=== PATIENT | female | born 1950 | race Caucasian/White ===

== ENCOUNTER → 2022-08-09 | Outpatient (CLI) | payer MEDICARE, OTHER, SELFPAY | END | disposition home or self-care (01) | LOC: LABSPEC 12:04 | PROVIDERS: PCP Internal Medicine; Visit Provider Obstetrics & Gynecology | DX: R30.0 Dysuria (principal) | CPT/HCPCS: 87086 ==

== ENCOUNTER → 2022-08-28 | Outpatient (CLI) | payer MEDICARE, OTHER, SELFPAY ==
--- NOTE | 2022-08-28 13:32 | US_ITS ---
STUDY: ULTRASOUND OF THE FEMALE PELVIS - COMPLETE REASON FOR EXAM: Female, 71 years old. pelvic pain/uterine prolapse TECHNIQUE: Transabdominal COMPARISON: None. FINDINGS: The uterus is anteverted and is in a midline position. The uterus measures 8.5x4.1 cm. Normal uterine cervix. The endometrium measures 2 mm in thickness, and is hyperechoic. There is no demonstrated endometrial mass. There is no demonstrated myometrial mass. I.U.D. - The patient does not have an I.U.D. The right ovary is visualized. The right ovary measures 1.4x1.4 cm. There is no right ovarian cyst or ovarian mass. There is no visualized right adnexal mass or complex lesion. There is normal arterial and normal venous vascularity. There is nonvisualization of the left ovary due to overlying bowel gas. There is no fluid in the cul-de-sac. Urinary bladder volume is (in cc) 881. US/Pelvic (Non ) IMPRESSION: There are no acute findings. Electronically Signed: Tushar Benitez MD at 17:35 EDT ,
== END | disposition home or self-care (01) ==
LOC: US 13:31
PROVIDERS: PCP Internal Medicine; Referring Provider Obstetrics & Gynecology; Visit Provider Obstetrics & Gynecology
DX: N81.2 Incomplete uterovaginal prolapse (principal)
CPT/HCPCS: 76856

== ENCOUNTER 2022-09-13 14:57 | Observation (INO) | payer MEDICARE, OTHER, SELFPAY ==
--- NOTE | 2022-09-03 12:12 | EKG12_ITS ---
Test Reason : PRE-OP Blood Pressure : / mmHG Vent. Rate : 053 BPM Atrial Rate : 053 BPM P-R Int : 160 ms QRS Dur : 084 ms QT Int : 410 ms P-R-T Axes : 020 007 013 degrees QTc Int : 384 ms Sinus bradycardia Otherwise normal ECG Confirmed by GREGORIO GUERRERO ([id number]), editor producer YURIY MCKINNON ([id number]) on 09/04/2022 7:49:56 AM Referred By: GEO Confirmed By:GREGORIO GUERRERO
[2022-09-03 12:30] LABS: Hemoglobin 14.9 g/dL (12.0-15.0); Mean Corp Hgb Conc 33.9 g/dL (32-36); Mean Corpuscular Volume 88.5 fL (81-99); Mean Platelet Vol. 9.6 fl (6.2-12.0); Platelet Count 233 K/mm3 (150-450); RBC Distribution Width CV 12.8 % (11.6-14.6); RBC Distribution Width SD 41.9 fl (35.1-43.9); Red Blood Count 4.97 M/mm3 (4.2-5.4); White Blood Count 5.5 K/mm3 (4.4-11.0)
[2022-09-03 13:12] LABS: ALB/GLOB Ratio 1.2 RATIO (0.9-2.4); AST(SGOT) 22 U/L (15-37); Alanine Aminotransfer ALT/SGPT 29 U/L (13-56); Alkaline Phosphatase 74 U/L (45-117); Anion Gap 2 (5-15); BUN 13 mg/dL (7-18); BUN/Creat Ratio 13.9 RATIO (10-20); Chloride 103 mmol/L (98-107); Creatinine, Serum 0.94 mg/dL (0.55-1.02); EST Glomerular Filtration Rate 63 mL/min (>60); Est Glom Filt Rate - Afr Amer 76 mL/min (>60); Globulin 3.4 g/dL (2.2-4.2); Glucose 105 mg/dL (74-106); Potassium 3.8 mmol/L (3.5-5.1); Protein, Total 7.4 g/dL (6.4-8.2); Sodium Level 136 mmol/L (136-145)
[2022-09-03 13:13] LABS: Magnesium 2.1 mg/dL (1.6-2.6)
--- NOTE | 2022-09-09 17:29 | HP.PCM_ITS ---
History and Physical MR#: [id number] Acct: [id number] Name:? ASHANTI JENNINGS Rep #: [id number] : 1950 ? ? Provider: Dr. Sheri Martin MD Age/Sex:? 71/F ? ? Location: [facility] [place] Status: Signed Intake Vital Signs ? 08/09/2309:20 Height 5 ft 2 in Weight: 155 lb 4 oz BMI 28.3 BP 182/95 H Intake Visit Reasons:?flaquita referral surgical consult Paving Bed Maker Required: No Is patient in pain?: No Allergies Sulfa (Sulfonamide Antibiotics) Allergy (Verified 08/09/22 10:23) Hives Medications acyclovir 400 mg tablet 400 mg PO DAILY 08/09/22 [History Confirmed 08/09/22] amlodipine 5 mg tablet 5 mg PO DAILY 08/09/22 [History Confirmed 08/09/22] azelaic acid 20 % topical cream 1 applic topical BID 08/09/22 [History Confirmed 08/09/22] calcium carbonate 600 mg calcium (1,500 mg) tablet 600 mg PO BID 08/09/22 [History Confirmed 08/09/22] carvedilol 12.5 mg tablet 12.5 mg PO BID 08/09/22 [History Confirmed 08/09/22] cholecalciferol (vitamin D3) 10 mcg (400 unit) capsule 10 mcg PO DAILY 08/09/22 [History Confirmed 08/09/22] clonidine HCl 0.1 mg tablet 0.1 mg PO BID 08/09/22 [History Confirmed 08/09/22] famotidine 20 mg tablet 20 mg PO DAILY PRN 08/09/22 [History Confirmed 08/09/22] fexofenadine 180 mg tablet 180 mg PO DAILY 08/09/22 [History Confirmed 08/09/22] latanoprost 0.005 % eye drops 1 drp ophthalmic (eye) DAILY 08/09/22 [History Confirmed 08/09/22] losartan 100 mg tablet 100 mg PO DAILY 08/09/22 [History Confirmed 08/09/22] nitrofurantoin macrocrystal 100 mg capsule 100 mg PO BID 08/09/22 [History Confirmed 08/09/22] Is last menstrual period known: No Post menopausal: Yes Patient : No : No PFSH Medical History?(Updated 08/09/22 @ 11:[address] Sheri Martin MD) GERD (gastroesophageal reflux disease) Glaucoma Hypertension Surgical History?(Updated 08/09/22 @ 10:25 by Elissa Carpio) Hx of dilation and curettage Family History?(Updated 08/09/22 @ 10:26 by Elissa Carpio) Father Heart disease Social History?(Updated 08/09/22 @ 10:28 by Elissa Carpio) number of children:? 3 current occupational status:? retired pets and animals:? Yes history of recent travel:? No sexually active:? No Smoking Status:? Never smoker alcohol intake:? never caffeine:? Yes what type of physical activity do you participate in:? walking seatbelt use:? always do you feel safe at home:? Yes additional social history:? spouse Joseph (retired) MANA sams referral surgical consult Details: * ASHANTI JENNINGS is a 71 year old who presents for vaginal bulge and pressure, increasing over the years.? she denies any burning or odor. she has acute symptoms of urinary frequency and some discomfort help and the overlay.? she was seen by dr sams and referred here.? she has nocturia overnight and frequency, declines pessary. Female Reproductive History Questions: metorrhagia: No, dyspareunia: No and PCB: No Menopausal Symptoms: No night sweats History ? ? ? 8 ? Elective abortions ? Hx Para ? ? ? 3 ? Spontaneous abortions ? Hx # Term Pregnancies ? Ectopic pregnancies ? Hx # Pregnancies ? Multiple births ? # of living children ? Past Pregnancies Del. Date Name GA/Weeks Outcome Route Bth Weight Gen Labor Lgth Anesthesia Del Locatn Provider FOB Unknown 3 Ninoska Shah ? ROS Const Constitutional: Reports system reviewed and no additional complaints, except as documented; Denies fatigue, headache(s) or night sweats ENT ENT: Reports system reviewed and no additional complaints, except as documented Cardio Card: Denies chest pain Resp Resp: Denies cough or dyspnea GI GI: Denies abdominal pain, bloating, change in stool character, constipation, fecal incontinence, nausea or vomiting : Reports prolapse symptoms, urinary incontinence and vaginal dryness; Denies nipple discharge, pelvic pain, sexual dysfunction, urinary frequency, urinary urgency, vaginal discharge, vaginal odor or vaginal pruritus Musc Musc: Denies arthralgias, back pain or muscle weakness Skin Skin/Breast: Denies alopecia, change in hair, dry skin, breast mass, breast pain, breast skin changes or nipple discharge Neuro Neuro: Reports system reviewed and no additional complaints, except as documented Psych Psych: Denies anxiety or depression Endo Endo: Denies cold intolerance, excessive sweating, heat intolerance or polydipsia Dayne/Lymph Hematologic/Lymphatic: Denies easy bleeding, Denies easy bruising and Denies lymphadenopathy Exam Const General: cooperative, healthy appearing, comfortable, no acute distress and well developed Orientation: alert [facility] Head: normal to inspection, normocephalic and atraumatic Ears: hearing grossly normal bilaterally and external ears normal Nose: external nose normal and nares normal Face and sinus: normal facial exam Neck Neck: normal visual inspection, full ROM, no lymphadenopathy and trachea midline Thyroid: thyroid normal Chest Chest palpation & inspection: normal inspection of the chest Breast inspection: normal inspection of the breasts, normal inspection of the axillae, abnormal inspection of the axilla and abnormal inspection of the breast Resp Effort & Inspection: normal respiratory effort Auscultation: clear to auscultation bilaterally Cardio Rate: regular rate Rhythm: regular rhythm Heart Sounds: S1 normal and S2 normal GI Inspection: normal to inspection and non-distended Palpation: soft, no hepatosplenomegaly, no hepatomegaly, not rigid and nontender General: bladder normal to palpation External Female Exam: abnormal external appearance (atrophic introitus), normal appearance of the urethra and no lesions Urethra: normal appearance of the urethra Speculum Exam - Vagina: abnormal appearance of the vagina, normal vaginal discharge, vagina atrophic and no lesions Speculum Exam - Cervix: normal appearance of the cervix Bimanual Exam- Vagina & Uterus: normal bimanual exam, uterine size normal, bladder normal to palpation, uterine shape normal, uterine mobility normal and non-tender Bimanual Exam- Adnexa, other: normal adnexae, no masses, rectocele (III), cystocele (III) and vaginal apex descent (III enlarged hiatus) Pelvic Support: cystocele (III), rectocele (III) and vaginal apex descent (III enlarged hiatus) Musc Other: gross motor intact no deficits, full bilateral strength Skin General: no rashes or lesions noted and atrophy Neuro General: patient alert, patient awake, moves all extremities and no focal motor deficits Motor: muscle tone normal throughout Extrem General: normal to inspection and no pedal edema Psych Appearance: grossly normal Mental Status: mental status grossly normal Affect: normal affect Speech and Movement: speech and movement normal Results POC Urinalysis Dip (Clinic) Office Urine Color Straw ? ? Last Edit by Elissa Carpio on 08/09/22 11:23 Office Urine Clarity Clear ? ? Last Edit by Elissa Carpio on 08/09/22 11:23 Office Urine Glucose Negative ? ? Last Edit by Elissa Carpio on 08/09/22 11:23 Office Urine Ketones Negative ? ? Last Edit by Elissa Carpio on 08/09/22 11:23 Off Ur Spec [place] 1.010 ? ? Last Edit by Elissa Carpio on 08/09/22 11:23 Office Urine pH 6 ? ? Last Edit by Elissa Carpio on 08/09/22 11:23 Office Urine Bilirubin Negative ? ? Last Edit by Elissa Carpio on 08/09/22 11:23 Office Urine Urobilinogen ? ? ? Last Edit by Elissa Carpio on 08/09/22 11:23 Office Urine Blood Moderate ? ? Last Edit by Elissa Carpio on 08/09/22 11:23 Office Urine Blood Hemolyzed Moderate ? ? Last Edit by Elissa Carpio on 08/09/22 11:23 Office Urine Protein Negative ? ? Last Edit by Elissa Carpio on 08/09/22 11:23 Office Urine Nitrate Negative ? ? Last Edit by Elissa Carpio on 08/09/22 11:23 Off Ur Leukocytes Negatve ? ? Last Edit by Elissa Carpio on 08/09/22 11:23 Coding Level of Care Code Off vis,new,level 5 Diagnoses Hx of rhinoplasty? Z98.890 Hypertension? I10 Incomplete uterovaginal prolapse? N81.2 Assessment and Plan Assessment and Plan (1) Hx of rhinoplasty: (2) Hypertension: ?Status:?Chronic (3) Incomplete uterovaginal prolapse: ?Status:?Acute ?Comment: combo case with flaquita ? ? ? Orders: Orders POC Urinalysis Dip (Clinic) Today R30.0 - Dysuria ? Culture, Urine Today R30.0 - Dysuria ? Plan After discussing the patient's diagnosis and treatment plan options, patient wishes to proceed with surgical management.? I have discussed with the patient the risks, benefits, and alternatives of the procedure which include but are not limited to risks of anesthesia, bleeding, infection, possible damage to bowel, bladder, or surrounding vasculature which could lead to additional surgery to evaluate any complications.? Patient agrees to procedure and wishes to proceed.? ACOG/uptodate references given for additional information regarding procedure.?
[2022-09-13] VITALS (17 sets, daily range): BP systolic 100–146; BP diastolic 59–96; PULSE 45–81; RESP 16–18; TEMP 36.2–36.9; O2SAT 94–100; BMI 28.0
--- NOTE | 2022-09-13 | HYST_PTH ---
PATIENT: ASHANTI JENNINGS LOC: [facility]3 U#:[id number] AGE/SX: 71/F ROOM: [facility] [place] RE09/13/[address]: Dr. Anamika Quinones MD : 1950 BED: 1 DIS: 09/14/2022 SPEC #: [id number] RECD: 09/13/22 12:34 STATUS: AARON BROWER #: [id number] AMANDA: 09/13/22 00:[address]: Anamika Quinones DEPT: SURGICAL PATHOLOGY RECD BY: Tj Ludwig ENTERED: 09/13/22 12:34 SP TYPE: HYSTERECT OTHR DR: MD Dr. Sheri Hughes MD Tissues: Uterus, NOS Procedures: Surgery Specimen Level V HEADER OPERATION: ERAS, total vaginal hysterectomy PRE-OP DIAGNOSIS: History of rhinoplasty, hypertension, incomplete uterovaginal prolapse TISSUE SUBMITTED: Cervix, uterus MICROSCOPIC DIAGNOSIS Cervix, uterus, total vaginal hysterectomy: Cervix ? chronic cystic cervicitis and squamous metaplasia. Endometrium ? proliferative endometrium with focal cystic changes. Myometrium ? focal superficial adenomyosis. ESTELA:jose juan 09/14/2022 MICROSCOPIC DESCRIPTION Slides are reviewed. GROSS DESCRIPTION Received in fixative is one container labeled with the patient's name and designated cervix and uterus. The specimen consists of a hysterectomy specimen consisting of uterus with cervix measuring 7.8 x 4.0 x 3.0 and weighing 42 gm. The serosal surface is bruner, glistening. The ectocervical mucosa is unremarkable. The external os is slit-like in contour. The endocervical canal measures 3.0 cm in length and the endocervical mucosa is unremarkable. Sections of the cervix reveal a few cysts filled with mucoid material. The triangular endometrial cavity measures 3.5 cm in length and 2.0 cm in width. The endometrium is bruner, glistening without any mass lesion and measures 0.1 cm in thickness. Sections of the uterine wall do not reveal any mass lesion and measures 1.2 cm in thickness. Presiding Judge sections are submitted in six cassettes as follows: 1 - anterior cervix, 2 - posterior cervix, 3 & 4 - anterior uterine wall, 5 & 6 - posterior uterine wall. / ESTELA:jose juan 09/13/2022 TC:5 CPT: 32451
[2022-09-13] MEDS: Acetaminophen 500 MG Tablet 1000 MG PO ×2 (06:41→17:48)
[2022-09-13] MEDS: Gabapentin 600 MG Tablet PO (06:41)
[2022-09-13] MEDS: Enoxaparin 40 MG/0.4 ML Syringe SC (06:43)
[2022-09-13] MEDS: Scopolamine 1mg/72hr Patch 1 PATCH TD (06:47)
[2022-09-13] MEDS: Lactated Ringers 1,000 ML 40 ML IV ×3 (06:48→18:26)
[2022-09-13] MEDS: dexAMETHasone 4 MG/ML Vial 8 MG IV (06:50)
[2022-09-13] MEDS: Magnesium 1 GM over 15 mins IV (06:56)
[2022-09-13] MEDS: Celecoxib 200 MG Capsule 400 MG PO (07:05)
[2022-09-13 07:10] LABS: Bedside Glucose 145 mg/dL (74-106)
[2022-09-13] MEDS: Cefazolin 2 GM in 0.9% Normal Saline 100 ML IV (07:28)
--- NOTE | 2022-09-13 07:29 | PCM.OPRPT ---
Problems Associated Problem List Diagnoses (1) Incomplete uterovaginal prolapse: (2) Hypertension: Report of Operation Date of Procedure: 09/13/22 Pre-Operative Diagnosis: see PL Post-Operative Diagnosis: same Surgery/Procedure Performed:: TVH Description of Surgical Findings:: nl uterus tubes ovaries Surgeon: Sheri Martin shoulder pad molder: Rachel Tavarez Type of Anesthesia: General Specimen's removed: uterus Drains: hart Estimated Blood Loss (mL): 100 Fluids Replaced: crystalloid Description of Procedure: Patient was taken to the operating room and was placed under general anesthesia was prepped and draped in normal sterile fashion in the dorsal lithotomy position. Preoperative antibiotics and SCDs and Hart catheter was placed inside the bladder. Weighted speculum was placed in the vagina and the anterior and posterior lip of the cervix was grasped with 2 Fernandez clamps and circumferentially injected with dilute vasopressin. A circumferential incision was made with a scalpel and the posterior cul-de-sac was entered into sharply and a longneck speculum was placed. The anterior cul-de-sac was also dissected down and entered into sharply and the uterosacral ligaments were clamped cut and suture ligated bilaterally followed by the cardinal ligaments which were Clamped cut and suture ligated bilaterally with 0 Monocryl. The uterus serially descended and progressive bites were taken bilaterally up to the level of the utero-ovarian ligament bilaterally which was clamped transected and double ligated with 0 Monocryl suture and 0 Vicryl free tie. Bilateral fallopian tubes and ovaries were difficult to visualize and outside of a safe reach to remove and therefore were left in situ. Excellent hemostasis was noted. The vagina was closed with [id number] 0 Vicryl pop offs including the posterior and anterior peritoneum in the reapproximation. Excellent hemostasis was noted. Then Dr. Quinones began her portion of the procedure. Grafts/Implants Used: none Complications none Admit VTE Documentation VTE Present on Admission: No VTE Mechan Device Prophylaxis: SCD's VTE Pharm Prophylaxis ordered?: Yes Multi Select Codes Urinary/Genital Urinary/Genital CPT Codes: 86440 TVH <250 gr uterus
--- NOTE | 2022-09-13 08:20 | PCM.OPRPT ---
Report of Operation Date of Procedure: 09/13/22 Pre-Operative Diagnosis: incomplete uterovaginal prolapse, stress incontinence Post-Operative Diagnosis: same Surgery/Procedure Performed:: Carrier repair, posterior repair, right sacrospinous ligament fixation, mid urethral sling and cystoscopy with right ureteral catheterization Surgeon: Anamika Quinones Type of Anesthesia: General Description of Procedure: The patient is a 71-year-old female with pelvic organ prolapse that presented to the office for intervention. She underwent testing and informed consent was obtained. She was taken to the operating room and placed on the operating room table. Anesthesia monitored the head, neck, airway, IV access and vital signs throughout the case. Once anesthesia was appropriately administered, the patient was placed into exaggerated dorsolithotomy and Trendelenburg position and was prepped and draped in usual sterile fashion. A Lima catheter was inserted to straight drain and Dr. Martin remove the uterus and close the vaginal cuff. At this time, there was a cystocele with mild apical loss of support as well as a rectocele still remaining. The anterior vaginal wall was isolated and injected submucosally with vasopressin. A midline vertical incision approximately 2 cm in length was made and sharp and blunt dissection was performed bilaterally until the pubocervical fascia was identified on the left side. On the right, the dissection continued down to the ischial spine where the sacrospinous ligament was identified and freed from surrounding tissue. The Capio device was used to pass a Ethibond suture through the ligament and it was brought out in full-thickness fashion through the lateral apex of the vagina. The pubocervical fascia was then brought together in interrupted fashion with 2-0 Vicryl and 2-0 PDS. The vaginal mucosa was then closed with running interlocking 2-0 Vicryl. The Ethibond suture was then tied into position reducing the prolapse. The Lima catheter was removed and the cystoscope was inserted through the urethra under direct visualization into the urinary bladder. There was no evidence of injury to the urinary bladder. The left ureteral orifice was seen with a good ureteral jet of urine. On the right, a 5 Occitan whistle-tip catheter was used to gently cannulate the ureteral orifice and it advanced easily without evidence of obstruction or injury all the way to 20 cm. At this time the cystoscope and whistle-tip catheter were removed and the Lima catheter was reinserted and the balloon was inflated. Attention was then turned towards the posterior defect. The submucosa was injected with vasopressin and a midline incision was made. Sharp and blunt dissection was performed until the rectovaginal fascia was identified. This was brought together with interrupted Vicryl suture and the perineal body was reconstructed using 2-0 PDS. The mucosa was then closed using running interlocking 2-0 Vicryl. At this time the mid urethra was identified and injected submucosally. A midline vertical incision was made and sharp and blunt dissection was performed on either side of the urethra with care being taken to avoid entrance into the urethra or the vaginal mucosa. The Altis mid urethral sling was then inserted using the provided trocars. It was positioned using the tensioning suture which was then cut. It lay flat against the urethra without tension. The incision was closed with running interlocking 2-0 Vicryl. There was one 5 mm rent in the vaginal mucosa on the left aspect of the urethra and this was closed with 1 [id number] suture. At this time the Lima catheter was once again removed and the cystoscope was inserted through the urethra under direct visualization revealing no evidence of injury. The coaptation of the urethra was visualized in the mid urethra at the area of the sling. This cystoscope was then removed and the Lima catheter was reinserted and the balloon inflated once again. The vagina was then packed with vaginal packing and estrogen cream. The patient was then awakened and taken to the recovery room in good condition. There were no complications during this procedure. Grafts/Implants Used: Altis midurethral sling Complications none Admit VTE Documentation VTE Present on Admission: Yes VTE Mechan Device Prophylaxis: SCD's VTE Pharm Prophylaxis ordered?: Yes
--- NOTE | 2022-09-13 08:21 | DCINST_ITS ---
Discharge Instructions Diet Discharge Diet: No restrictions Activity Discharge Activity: May Shower and - (no tub bathing, swimming or hot tubs) May resume sexual activity in: 8 weeks Lifting Restrictions: 5 pounds Additional Activity Instructions:: no exercise or strenuous activity, no sexual activity, no vacuuming, no dog walking Dressing / Incision Call your doctor if your incision/area has: Continuous Slow Oozing, Sudden Increased Bleeding and Foul Smelling Discharge Call your doctor if you observe: Fever of 101 or Higher, Inability to urinate and Inability to have a bowel movement Follow Up Care Please Follow Up With: Anamika Quinones MD When: call office for appt Test Results: Test results from this visit will be discussed in further detail at your follow- up appointment, if applicable. Discharge Plan Admission Admit Date/Time: 09/13/22 14:57 Attending Provider: Anamika Quinones Primary Care Provider: Ce Cameron Consulting Providers: Sheri Martin Discharge Orders/Prescriptions Prescriptions: New oxycodone-acetaminophen [Percocet] 5-325 mg tablet 1 tab PO Q8H PRN (Reason: pain) 3 Days Qty: 20 0RF nitrofurantoin monohyd/m-cryst [Macrobid] 100 mg capsule 100 mg PO BID Qty: 6 0RF Rx Instructions: must administer with a meal/food Continued acyclovir 400 mg tablet 400 mg PO PRN PRN (Reason: Cold Sores) amlodipine 5 mg tablet 5 mg PO QHS azelaic acid 20 % cream 1 applic topical BID calcium carbonate 600 mg calcium (1,500 mg) tablet 600 mg PO BID carvedilol 12.5 mg tablet 12.5 mg PO BID Rx Instructions: must administer with a meal/food cholecalciferol (vitamin D3) 10 mcg (400 unit) capsule 10 mcg PO DAILY clonidine HCl 0.1 mg tablet 0.1 mg PO BID famotidine 20 mg tablet 20 mg PO DAILY PRN (Reason: GERD) latanoprost 0.005 % drops 1 drp ophthalmic (eye) DAILY losartan 100 mg tablet 100 mg PO DAILY estriol (bulk) 100 % powder 1 ea miscellaneous MOWEFR Label Comments: APPLY 1 GRAM (4 CLICKS)MVAGINALLY THREE TIMES PEREWEEK vitamin E 200 unit Capsule 200 unit PO DAILY aspirin 81 mg Capsule 81 mg PO DAILY Referrals / Follow Up: Ce Cameron MD [Primary Care Provider] - Disposition Disposition (needs filled in before D/C Order can be placed): Home, Self Care
[2022-09-13] MEDS: Vasopressin 20 UNITS/ML Vial 10 UNITS IV (09:55)
[2022-09-13] MEDS: Estrogens,Conj. 1 Tube 0.625 DOSE VAGINAL (10:00)
[2022-09-13] MEDS: Ondansetron 4 MG/2 ML Vial IV (10:03)
[2022-09-13] MEDS: Ketorolac 15 MG/ML Vial IV ×2 (14:48→18:43)
[2022-09-13] MEDS: 0.9% Saline Lock 10 ML Syringe IV (18:43)
[2022-09-13] MEDS: Docusate Sodium 100 MG Capsule PO (20:58)
[2022-09-13] MEDS: Nitrofurantoin Macrocrystals 100 MG Capsule PO (21:00)
[2022-09-14] VITALS (7 sets, daily range): BP systolic 127–136; BP diastolic 52–73; PULSE 48–63; RESP 16–18; TEMP 36.6–36.8; O2SAT 94–98
[2022-09-14] MEDS: Ketorolac 15 MG/ML Vial IV ×3 (00:20→13:01)
[2022-09-14] MEDS: Acetaminophen 500 MG Tablet 1000 MG PO ×3 (00:20→11:52)
[2022-09-14 05:32] LABS: Hematocrit 37.8 % (37-47); Hemoglobin 12.7 g/dL (12.0-15.0); Mean Corp Hgb Conc 33.6 g/dL (32-36); Mean Corpuscular Hgb 29.7 pg (27.0-32.0); Mean Corpuscular Volume 88.5 fL (81-99); Mean Platelet Vol. 9.7 fl (6.2-12.0); Platelet Count 186 K/mm3 (150-450); RBC Distribution Width CV 12.7 % (11.6-14.6); RBC Distribution Width SD 41.4 fl (35.1-43.9); Red Blood Count 4.27 M/mm3 (4.2-5.4); White Blood Count 13.2 K/mm3 (4.4-11.0)
--- NOTE | 2022-09-14 07:27 | PCM.PN.OB ---
Subjective Subjective Patient doing well without complaints. Tolerating PO. Ambulating without difficulty. Denies chest pain, shortness of breath, calf pain/swelling, fevers, chills, lightheadedness. Objective Data Objective Data Vital Signs: Vital Signs Temp Pulse Resp BP Pulse Ox O2 Del Method O2 Flow Rate 97.8 F 50 L 16 132/73 H 95 Room Air 2 09/14/22 05:29 09/14/22 05:29 09/14/22 05:29 09/14/22 05:29 09/14/22 05:29 09/14/22 05:29 09/13/22 14:18 Oxygen Flow Rate (L/min) 2 Oxygen Delivery Method Room Air Weight: 151 lb Body Mass Index (BMI) 28.0 Intake & Output: Intake and Output for Last 24 Hours 09/12/22 09/13/22 09/14/22 23:59 23:59 23:59 Intake Total 1555.33 / 1555.33 300 / 300 Output Total 600 / 600 1200 / 1200 Balance 955.33 / 955.33 -900 / -900 Lab / Micro Data Result Diagrams: 09/14/22 05:20 09/03/22 12:14 Labs: Laboratory Results - last 24 hr 09/14/22 05:20: WBC 13.2 H, RBC 4.27, Hgb 12.7, Hct 37.8, MCV 88.5, MCH 29.7, MCHC 33.6, RDW Std Deviation 41.4, RDW Coeff of Baltazar 12.7, Plt Count 186, MPV 9.7 ROS Constitutional Constitutional: Reports systems reviewed and no addt'l complaints, except as documented Cardiovascular Cardiovascular: Reports systems reviewed and no addt'l complaints, except as documented Respiratory/Chest Respiratory/Chest: Reports systems reviewed and no addt'l complaints, except as documented Gastrointestinal Gastrointestinal: Reports systems reviewed and no addt'l complaints, except as documented Physical Exam Const alert, oriented x3 and no apparent distress HEENT Head and Scalp: atraumatic Resp normal respiratory effort GI soft to palpation and non-tender Assessment & Plan (1) Incomplete uterovaginal prolapse: COMMENT: combo case with flaquita (2) History of total vaginal hysterectomy (TVH): PLAN: Plan patient is s/p post TVH POD 1 1. routine ERAS protocol postop care- increase ambulation, encourage oral intake and oral control of pain. lovenox and scds for dvt prophylaxis, patient stable for discharge to home.
[2022-09-14] MEDS: Nitrofurantoin Macrocrystals 100 MG Capsule PO (08:31)
[2022-09-14] MEDS: Enoxaparin 40 MG/0.4 ML Syringe SC (08:31)
[2022-09-14] MEDS: Docusate Sodium 100 MG Capsule PO (08:31)
--- NOTE | 2022-09-14 12:05 | NURSING ---
Called and left a message with Dr. Quinones office and left message with staff that pt voided 350 and post void residual was 185.
[2022-09-14] MEDS: 0.9% Saline Lock 10 ML Syringe IV (13:01)
--- NOTE | 2022-09-14 14:16 | PHA.DC.MC ---
Pharmacy Service has performed discharge medication reconciliation and counseling for this patient. 1. PERCOCET 5/325MG 1T PO Q8H PRN PAIN 2. NITROFURANTOIN 100MG PO BID X 3 DAYS The patient's discharge medication list was reviewed for discrepancies and discrepancies were resolved. Home Medications acyclovir 400 mg tablet 400 mg PO PRN PRN Cold Sores 08/09/22 amlodipine 5 mg tablet 5 mg PO QHS 08/09/22 azelaic acid 20 % topical cream 1 applic topical BID 08/09/22 calcium carbonate 600 mg calcium (1,500 mg) tablet 600 mg PO BID 08/09/22 carvedilol 12.5 mg tablet 12.5 mg PO BID 08/09/22 cholecalciferol (vitamin D3) 10 mcg (400 unit) capsule 10 mcg PO DAILY 08/09/22 clonidine HCl 0.1 mg tablet 0.1 mg PO BID 08/09/22 famotidine 20 mg tablet 20 mg PO DAILY PRN GERD 08/09/22 latanoprost 0.005 % eye drops 1 drp ophthalmic (eye) DAILY 08/09/22 losartan 100 mg tablet 100 mg PO DAILY 08/09/22 aspirin 81 mg capsule 81 mg PO DAILY 08/29/22 estriol (bulk) 100 % powder 1 ea miscellaneous MOWEFR 08/29/22 vitamin E 200 unit capsule 200 unit PO DAILY 08/29/22 nitrofurantoin monohydrate/macrocrystals 100 mg capsule (Macrobid) 100 mg PO BID #6 caps 09/14/22 oxycodone-acetaminophen 5 mg-325 mg tablet (Percocet) 1 tab PO Q8H PRN pain 3 days #20 tabs 09/14/22 The patient was counseled on the following discharge medications and changes in medications for homegoing were reviewed. The Reason for Use, instructions for use, and potential side effects were reviewed for all new medications. The patient's questions regarding all of their medications were answered. The patient was able to verbally demonstrate an understanding of their discharge medications.
== END 2022-09-14 15:09 | disposition home or self-care (01) ==
LOC: SDC 15:40 → MS3 15:40
PROVIDERS: Anesthesiology; Obstetrics & Gynecology; Admitting Provider Urology; PCP Internal Medicine; Referring Provider Urology; Visit Provider Urology
PROC: (CPT 58260; principal; 2022-09-13 07:10)
PROC: (CPT 57260; 2022-09-13 07:10)
DX: N81.2 Incomplete uterovaginal prolapse (principal); I10 Essential (primary) hypertension; R35.0 Frequency of micturition; N39.3 Stress incontinence (female) (male); Z79.899 Other long term (current) drug therapy; K21.9 Gastro-esophageal reflux disease without esophagitis; Z79.82 Long term (current) use of aspirin; N36.42 Intrinsic sphincter deficiency (ISD)
CPT/HCPCS: 58260; 57288; 57260; 00944; 36415; 80053; 82962; 83735; 85027; 86850; 86900; 86901; 88307; 93005; 94668; 96372; 96374; 96376; 99221; J7120; A4216; C1758; G0378; J2405; J3475

== ENCOUNTER → 2023-04-23 | Outpatient (CLI) | payer MEDICARE, OTHER, SELFPAY ==
--- NOTE | 2023-04-23 13:12 | BI_ITS ---
MAMMOGRAPHY - BILATERAL SCREENING REASON FOR EXAM: Female, 72 years old. Routine annual screening examination. PERTINENT HISTORY: Non-contributory. TECHNIQUE: Digital bilateral breast patsy (3D mammographic acquisition) in the CC and MLO projections. 2-D mediolateral oblique (MLO) and craniocaudad (CC) views of both breasts were obtained. CAD: Full Field Digital Mammography with Computer Added Detection was performed. COMPARISON: Comparison is made with prior abdomen examination August 08, 2018. FINDINGS: Breast Composition: The breasts are heterogeneously dense, which may obscure small masses. There is a 3.3 mm x 5.8 mm well-defined nodule in the deep slightly lateral aspect of the right breast. Correlation with ultrasound is recommended. Stable appearance of the bilateral axillary lymph nodes. No other significant abnormalities are identified. BI/SCRN MAMM (CAD)W/PATSY BILAT IMPRESSION: 3.3 mm x 5.8 mm well-defined nodule in the deep slightly lateral aspect of the right breast. Correlation with ultrasound is recommended. ASSESSMENT CATEGORY: BIRADS Category 0: Incomplete. Need additional imaging evaluation. A letter regarding these results will be sent to the patient by the facility within 30 days. Approximately 10% of breast cancers are not detected by mammography. A normal mammogram should not delay biopsy of a clinically suspicious abnormality. [id number] Electronically Signed: Ken Oakes MD at 14:51 EST ,
--- NOTE | 2023-04-23 13:17 | BD_ITS ---
STUDY: DUAL ENERGY X-RAY ABSORPTIOMETRY / DXA REASON FOR EXAM: Female, 72 years old. Post menopausal TECHNIQUE: Bone Mineral Density (BMD) measurements of lumbar spine and bilateral hips were obtained. COMPARISON: None. FINDINGS: Lumbar Spine (L1-L4): g/cm2 (0.961) / T-score (-0.8) / Z-score (1.5) Findings are suggestive of normal bone density with a low fracture risk. Left Femur Total: g/cm2 (0.848) / T-score (-0.8) / Z-score (0.9) Left Femoral Neck: g/cm2 (0.647) / T-score (-1.8) / Z-score (0.1) Right Femur Total: g/cm2 (0.805) / T-score (-1.1) / Z-score (0.5) Right Femoral Neck: g/cm2 (0.627) / T-score (-2.0) / Z-score (-0.1) BD/Dexa Bone Density Study IMPRESSION: The patient is considered osteopenic as outlined below according to World [employer] Organization (WHO) criteria with a moderate fracture risk. Reference Information: The T-score is the number of standard deviations above or below the standard which is normal for young adults at their peak bone mineral density. The World Health Organization (WHO) interprets the T-scores as follows: Above -1 Normal bone density Between -1 and -2.5 Osteopenia Equal to / or below -2.5 Osteoporosis As a practical clinical guideline, osteopenia may be graded as follows: Mild -1 through -1.5 Moderate -1.6 through -2.0 Severe -2.1 through -2.4 The Z-score is the number of standard deviations above or below age-matched controls. A Z-score of less than -1.5 would be considered abnormal. References: 1. NIH Osteoporosis and Related Bone Diseases www osteo.org 2. International Society for Clinical Densitometry www iscd.org 3. National Osteoporosis Foundation www nof.org Electronically Signed: Ken Oakes MD at 10:43 EST ,
== END | disposition home or self-care (01) ==
LOC: OPBD 13:10
PROVIDERS: PCP Family Medicine; Referring Provider Obstetrics & Gynecology; Visit Provider Obstetrics & Gynecology
DX: Z12.31 Encounter for screening mammogram for malignant neoplasm of breast (principal); Z09 Encounter for follow-up examination after completed treatment for conditions other than malignant neoplasm
CPT/HCPCS: 77063; 77067; 77080

== ENCOUNTER → 2023-04-25 | Outpatient (CLI) | payer MEDICARE, OTHER, SELFPAY ==
--- NOTE | 2023-04-25 14:18 | US_ITS ---
STUDY: ULTRASOUND BREAST - RIGHT REASON FOR EXAM: Female, 72 years old. Abnormal screening mammogram. TECHNIQUE: Axial and longitudinal images of the RIGHT breast were performed with a high resolution ultrasound transducer. # OF IMAGES: 29 COMPARISON: Comparison is made with prior mammogram dated April 23, 2023. FINDINGS: RIGHT Breast: The lateral aspect of the right breast was examined with ultrasound. The mammographic abnormality corresponds to a 6 mm x by 3 mm x 4 mm cyst at the 9:00 position of the breast at 5 cm from the nipple. US/Breast Limited Unilateral IMPRESSION: 6 mm x 3 mm x 4 mm cyst at the 9:00 position of the breast of 5 cm from the nipple. ASSESSMENT CATEGORY: BIRADS Category 2: Benign. A letter regarding these results will be sent to the patient by the facility within 30 days. Electronically Signed: Ken Oakes MD at 15:31 EST ,
== END | disposition home or self-care (01) ==
LOC: OPUS 14:15
PROVIDERS: PCP Family Medicine; Referring Provider Obstetrics & Gynecology; Visit Provider Obstetrics & Gynecology
DX: R92.8 Other abnormal and inconclusive findings on diagnostic imaging of breast (principal)
CPT/HCPCS: 76642

== ENCOUNTER → 2023-10-23 | Outpatient (CLI) | payer MEDICARE, OTHER, SELFPAY ==
[2023-10-29 21:42] LABS: Rheumatoid Factor < 10.0 IU/mL (<15)
== END | disposition home or self-care (01) ==
LOC: MFPLAB 11:40
PROVIDERS: PCP Family Medicine; Visit Provider Family Medicine
DX: M19.90 Unspecified osteoarthritis, unspecified site (principal)
CPT/HCPCS: 36415; 86431

== ENCOUNTER → 2024-12-18 | Outpatient (CLI) | payer MEDICARE, OTHER, SELFPAY ==
--- NOTE | 2024-12-18 12:14 | BI_ITS ---
EXAM: SCRN MAMM (CAD)W/PATSY BILAT DATE: 12/18/2024 CLINICAL HISTORY: F, Age 74 y/o , SCREENING TECHNIQUE: SCRN MAMM (CAD)W/PATSY BILAT COMPARISON: Prior exam(s) were compared . FINDINGS: TISSUE DENSITY: The breasts are heterogeneously dense, which may obscure small masses. Bilateral Breast Mammographic Findings: No suspicious masses, calcifications or other abnormalities are identified. BI/SCRN MAMM (CAD)W/PATSY BILAT IMPRESSION: No mammographic evidence of malignancy in either breast OVERALL FINAL ASSESSMENT BI-RADS 1: NEGATIVE. RECOMMENDATION: Routine annual follow-up in 1 Year A letter with findings and recommendations will be mailed to the patient. Reading Location: [id number]
== END | disposition home or self-care (01) ==
LOC: OPBI 12:11
PROVIDERS: PCP Family Medicine; Referring Provider Family Medicine; Visit Provider Family Medicine
DX: Z12.31 Encounter for screening mammogram for malignant neoplasm of breast (principal)
CPT/HCPCS: 77063; 77067

== ENCOUNTER → 2024-12-28 | Outpatient (CLI) | payer MEDICARE, OTHER, SELFPAY ==
[2024-12-28 10:03] LABS: Hematocrit 42.0 % (37-47); Hemoglobin 14.0 g/dL (12.0-15.0); Immature Granulocytes Count 0.020 X10^3/uL (0.0-0.0); Mean Corp Hgb Conc 33.3 g/dL (32-36); Mean Corpuscular Volume 87.7 fL (81-99); Mean Platelet Vol. 10.0 fl (6.2-12.0); NRBC Flagged by Analyzer 0 % (0-5); Platelet Count 249 K/mm3 (150-450); RBC Distribution Width CV 13.2 % (11.6-14.6); RBC Distribution Width SD 42.5 fl (35.1-43.9); Red Blood Count 4.79 M/mm3 (4.2-5.4); White Blood Count 6.5 K/mm3 (4.4-11.0)
[2024-12-28 11:07] LABS: AST(SGOT) 17 U/L (<=31); Alanine Aminotransfer ALT/SGPT 15 U/L (<=34); Albumin, Serum 4.3 g/dL (3.4-4.8); Alkaline Phosphatase 63 U/L (35-104); Anion Gap 12 (5-15); BUN 17 mg/dL (4-19); BUN/Creat Ratio 15.9 RATIO (10-20); Calcium,Total 9.8 mg/dL (7.6-11.0); Carbon Dioxide 24.0 mmol/L (21.0-32.0); Chloride 103 mmol/L (98-108); Cholesterol 234 mg/dL (<=200); Globulin 3.1 g/dL (2.2-4.2); Glucose 114 mg/dL (70-99); Low Density Lipoprotein Calc. 150 mg/dL; Potassium 4.4 mmol/L (3.3-5.1); Triglycerides 102 mg/dL; Very Low Density Lipoprotein 20 mg/dL (5-40); cholesterol:hdl ratio screen 3.66
== END | disposition home or self-care (01) ==
PROVIDERS: PCP Family Medicine; Referring Provider Family Medicine; Visit Provider Family Medicine
DX: I10 Essential (primary) hypertension (principal); Z78.0 Asymptomatic menopausal state; R10.11 Right upper quadrant pain
CPT/HCPCS: 36415; 76705; 80053; 80061; 84443; 85025